=== PATIENT | female | born 1955 | race Caucasian/White ===

== ENCOUNTER → 2016-07-06 | Outpatient (CLI) | payer BC ==
--- NOTE | 2016-07-06 11:31 | REP ---
Clinical: Pain. Technique: AP, lateral, bilateral oblique and sunrise views. Findings: Mild arthritic degenerative changes include increased sclerosis to the tibial plateau with medial compartment and patellofemoral joint space narrowing, subtle cortical irregularity to the femoral condyles and calcification to the insertion of the quadriceps tendon on the patella. No acute fracture dislocation. No definite effusion. Impression: Mild arthritic degenerative changes. Signed by Rangel Hawkins MD 07/06/2016 11:22 A
== END ==
LOC: M WUC 10:42
PROVIDERS: ATTEND Nurse Practitioner Family
DX: M25.562 Pain in left knee (principal)

== ENCOUNTER 2016-08-12 02:57 | Emergency (ER) | payer BC ==
[2016-08-12] MEDS ORDERED: predniSONE 20 MG TAB As Ordered ONE (06:25)
--- NOTE | 2016-08-12 07:26 | EDDOCDS ---
Physician Documentation [facility] Name: Rosa Mcbride Age: 61 yrs Sex: Female : 1955 Arrival Date: 08/12/2016 Time: 02:57 Bed 9 Private MD: Mary Diaz DO Disposition: 08/12/16 06:38 Discharged to Home/Self Care. Impression: Allergy, unspecified. - Condition is Stable. - Discharge Instructions: Allergies, Allergies, [id number]. - Medication Reconciliation, Local Pharmacy Hours form. - Follow up: Private Physician; When: Call to arrange an appointment; Reason: Recheck today's complaints, Continuance of care. - Problem is new. - Symptoms have improved. Historical: - Allergies: Bactrim; Ciprofloxacin; - Home Meds: 1. losartan-hydrochlorothiazide 50-12.5 mg oral tab 1 tab once daily 2. eye drops - PMHx: Hypertension; - PSHx: Hysterectomy; - Social history: Smoking status: Patient states was never smoker of tobacco. Patient uses alcohol on a daily basis. No barriers to communication noted, The patient speaks fluent Maori. - Family history: Not pertinent. - : The pt / caregiver states he / she is not on anticoagulants. Home medication list is obtained from the patient. - Exposure Risk Screening:: None identified. Vital Signs: 08/12 03:13 BP 143 / 76; Pulse 71; Resp 18; Temp 98.6(O); Pulse Ox 99% on R/A; Weight 67.13 kg / tm5 148 lbs; Height 5 ft. 6 in. (167.64 cm); Pain 3/10; 07:21 BP 131 / 65; Pulse 54; Resp 16; Temp 98.1(TE); Pulse Ox 100% ; Pain 0/10; ja5 03:13 Body Mass Index 23.89 (67.13 kg, 167.64 cm) tm5 MDM: 06:15 predniSONE 60 mg PO once; administer with food or milk ordered. gk1 06:26 Financial registration complete. hs2 06:26 [facility] Payment Agreement was scanned into [employer] and attached to record. hs2 Administered Medications: 06:27 Drug: predniSONE 60 mg [prednisone 20 mg tablet (3 tabs)] Route: PO; af2 Signatures: Hillary StockRN RN af2 Sujata Perez, Reg Reg hs2 Arora, Amari, DO DO gk1 Brigida LoganRN RN tm5 Cyndi BazanRN RN ja5 The chart was reviewed and I authenticate all verbal orders and agree with the evaluation and treatment provided.Attachments: 06:26 [facility] Payment Agreement hs2 MTDD
--- NOTE | 2016-08-12 07:26 | EDDOCDS ---
Nurse's Notes [facility] Name: Rosa Mcbride Age: 61 yrs Sex: Female : 1955 Arrival Date: 08/12/2016 Time: 02:57 Bed 9 Private MD: Mary Diaz DO Diagnosis: Allergy, unspecified Presentation: 08/12 03:09 Presenting complaint: Patient states: per pt left sided of face is swollen, denies tm5 fevers, pain around left eye. Adult Sepsis Screening: The patient does not have new or worsening altered mentation. Patient's respiratory rate is less than 22. Systolic blood pressure is greater than 100. Patient has a qSOFA score of 0- Negative Sepsis Screen. Suicide/Homicide risk assessment- the patient denies having any suicidal and/or homicidal ideations and does not present with any other emotional, behavioral or mental health complaints. Status: Patient is not a creative services coordinator or dependent. Transition of care: patient was not received from another setting of care. 03:09 Acuity: DANIEL Level 3 tm5 03:09 Method Of Arrival: Walkin/Carried/Asstd tm5 Triage Assessment: 03:13 General: Appears in no apparent distress, Behavior is appropriate for age, cooperative. tm5 Pain: Location: left eye Pain currently is 3 out of 10 on a pain scale. Quality of pain is described as aching. HIV screening NA for this visit Offered previously. Neurological: Level of Consciousness is awake, alert, Oriented to person, place, time. Respiratory: Airway is patent Respiratory effort is even, unlabored, Respiratory pattern is regular, symmetrical. Derm: Skin is pink, warm & dry. 05:21 I have visited this patient for a triage reassessment, no changes in pt's assessment at tm5 this time. Historical: - Allergies: Bactrim; Ciprofloxacin; - Home Meds: 1. losartan-hydrochlorothiazide 50-12.5 mg oral tab 1 tab once daily 2. eye drops - PMHx: Hypertension; - PSHx: Hysterectomy; - Social history: Smoking status: Patient states was never smoker of tobacco. Patient uses alcohol on a daily basis. No barriers to communication noted, The patient speaks fluent Niuean. - Family history: Not pertinent. - : The pt / caregiver states he / she is not on anticoagulants. Home medication list is obtained from the patient. - Exposure Risk Screening:: None identified. Screenin:14 Screening information is obtained from the patient. Fall risk: No risks identified. tm5 Assistance ADL's: requires no assistance with activities of daily living. Abuse/DV Screen: The patient / caregiver reports he/she is: not in a situation that causes fear, pain or injury. Nutritional screening: No deficits noted. Advance Directives: Currently, there is no health care proxy. There is no active DNR order. home support is adequate. Assessment: 06:30 General: Appears in no apparent distress, Behavior is cooperative. Neurological: Level af2 of Consciousness is awake, alert. EENT: Reports swelling to face, improved after Benadryl at home.. Respiratory: Airway is patent Respiratory effort is even, unlabored. Derm: Skin is normal. 07:21 General: Appears in no apparent distress, Behavior is appropriate for age, cooperative. ja5 Pain: Denies pain. Neurological: Level of Consciousness is awake, alert, Oriented to person, place, time. EENT:. Cardiovascular: Capillary refill < 3 seconds Heart tones S1 S2 present Respiratory: Airway is patent Respiratory effort is even, unlabored, Respiratory pattern is regular, symmetrical, Breath sounds are clear bilaterally. Derm: Skin is pink, warm & dry. 07:24 General: Patient states allergy symptoms have been relieved and she plans on following ja5 up with her primary care provider.. Vital Signs: 03:13 BP 143 / 76; Pulse 71; Resp 18; Temp 98.6(O); Pulse Ox 99% on R/A; Weight 67.13 kg; tm5 Height 5 ft. 6 in. (167.64 cm); Pain 3/10; 07:21 BP 131 / 65; Pulse 54; Resp 16; Temp 98.1(TE); Pulse Ox 100% ; Pain 0/10; ja5 03:13 Body Mass Index 23.89 (67.13 kg, 167.64 cm) [facility] Vitals: 03:13 Log In Time: August 12, 2016 at 03:14. 5 ED Course: 02:59 Patient visited by Keon Alvarez RegCruz pm4 02:59 Mary Diaz is Private Physician. pm4 02:59 Patient moved to Waiting pm4 03:12 Triage Initiated tm5 03:13 Family accompanied patient. tm5 05:48 Hillary StockRN is Primary Nurse. tm5 05:48 Patient moved to 9 tm5 05:54 [facility] gk1 05:54 Jorge Ayala DO is Attending Physician. gk1 06:11 Patient visited by Jorge Ayala DO. cs11 06:26 [facility] Payment Agreement was scanned into [employer] and attached to record. hs2 06:31 The patient / caregiver is instructed regarding the plan of care and ED course. af2 06:31 No IV's were initiated during this patient's visit. No procedures done that require af2 assistance. 06:32 Patient visited by Hillary Stock RN. af2 07:06 Cyndi Bazan,RN is Primary Nurse. ja5 07:15 Adela Peraza, RN is Primary Nurse. jc4 Administered Medications: 06:27 Drug: predniSONE 60 mg [prednisone 20 mg tablet (3 tabs)] Route: PO; af2 Order Results: There are currently no results for this order. Outcome: 06:38 Discharge ordered by Provider. gk1 07:23 Discharge Assessment: Patient awake, alert and oriented x 3. No cognitive and/or ja5 functional deficits noted. Patient verbalized understanding of disposition instructions. Patient patient administered narcotics - no. The following High Risk Discharge criteria are identified: None. Discharged to home ambulatory, with family. Condition: stable. Instructed on discharge instructions, follow up and referral plans. Demonstrated understanding of. No special radiology studies were completed. Property :Personal belongings accompany Pt. 07:25 Patient left the ED. ja5 Signatures: Adela Peraza RN RN jc4 Jorge Ayala DO DO cs11 Hillary Stock RN RN af2 Sujata Perez, Reg Reg hs2 Amari Arora DO DO gk1 Brigida Logan RN RN tm5 Keon Alvarez, Reg Reg pm4 Cyndi Bazan RN RN ja5 MTDD
--- NOTE | 2016-08-14 08:26 | EDDOCDS ---
Physician Documentation [facility] [place] Name: Rosa Mcbride Age: 61 yrs Sex: Female : 1955 Arrival Date: 08/12/2016 Time: 02:57 Bed 9 Private MD: Mary Diaz DO Disposition: 08/12/16 06:38 Discharged to Home/Self Care. Impression: Allergy, unspecified. - Condition is Stable. - Discharge Instructions: Allergies, Allergies, [id number]. - Medication Reconciliation, Local Pharmacy Hours form. - Follow up: Private Physician; When: Call to arrange an appointment; Reason: Recheck today's complaints, Continuance of care. - Problem is new. - Symptoms have improved. Historical: - Allergies: Bactrim; Ciprofloxacin; - Home Meds: 1. losartan-hydrochlorothiazide 50-12.5 mg oral tab 1 tab once daily 2. eye drops - PMHx: Hypertension; - PSHx: Hysterectomy; - Social history: Smoking status: Patient states was never smoker of tobacco. Patient uses alcohol on a daily basis. No barriers to communication noted, The patient speaks fluent Arabic. - Family history: Not pertinent. - : The pt / caregiver states he / she is not on anticoagulants. Home medication list is obtained from the patient. - Exposure Risk Screening:: None identified. Vital Signs: 08/12 03:13 BP 143 / 76; Pulse 71; Resp 18; Temp 98.6(O); Pulse Ox 99% on R/A; Weight 67.13 kg / tm5 148 lbs; Height 5 ft. 6 in. (167.64 cm); Pain 3/10; 07:21 BP 131 / 65; Pulse 54; Resp 16; Temp 98.1(TE); Pulse Ox 100% ; Pain 0/10; ja5 03:13 Body Mass Index 23.89 (67.13 kg, 167.64 cm) tm5 MDM: 06:15 predniSONE 60 mg PO once; administer with food or milk ordered. gk1 06:26 Financial registration complete. hs2 06:26 [facility] Payment Agreement was scanned into [employer] and attached to record. hs2 14:32 T-Sheet-- Draft Copy was scanned into [employer] and attached to record. gb Administered Medications: 06:27 Drug: predniSONE 60 mg [prednisone 20 mg tablet (3 tabs)] Route: PO; af2 Signatures: Monica Jones, Reg Reg gb Hillary StockRN RN af2 Sujata Perez, Reg Reg hs2 Amari Arora, DO DO gk1 Brigida LoganRN RN tm5 Cyndi BazanRN RN ja5 The chart was reviewed and I authenticate all verbal orders and agree with the evaluation and treatment provided.Attachments: 06:26 [facility] Payment Agreement hs2 14:32 T-Sheet-- Draft Copy gb Chart Complete MTDD
--- NOTE | 2016-08-14 08:26 | EDDOCDS ---
Nurse's Notes [facility] Name: Rosa Mcbride Age: 61 yrs Sex: Female : 1955 Arrival Date: 08/12/2016 Time: 02:57 Bed 9 Private MD: Mary Diaz DO Diagnosis: Allergy, unspecified Presentation: 08/12 03:09 Presenting complaint: Patient states: per pt left sided of face is swollen, denies tm5 fevers, pain around left eye. Adult Sepsis Screening: The patient does not have new or worsening altered mentation. Patient's respiratory rate is less than 22. Systolic blood pressure is greater than 100. Patient has a qSOFA score of 0- Negative Sepsis Screen. Suicide/Homicide risk assessment- the patient denies having any suicidal and/or homicidal ideations and does not present with any other emotional, behavioral or mental health complaints. Status: Patient is not a customer service associate or dependent. Transition of care: patient was not received from another setting of care. 03:09 Acuity: DANIEL Level 3 tm5 03:09 Method Of Arrival: Walkin/Carried/Asstd tm5 Triage Assessment: 03:13 General: Appears in no apparent distress, Behavior is appropriate for age, cooperative. tm5 Pain: Location: left eye Pain currently is 3 out of 10 on a pain scale. Quality of pain is described as aching. HIV screening NA for this visit Offered previously. Neurological: Level of Consciousness is awake, alert, Oriented to person, place, time. Respiratory: Airway is patent Respiratory effort is even, unlabored, Respiratory pattern is regular, symmetrical. Derm: Skin is pink, warm & dry. 05:21 I have visited this patient for a triage reassessment, no changes in pt's assessment at tm5 this time. Historical: - Allergies: Bactrim; Ciprofloxacin; - Home Meds: 1. losartan-hydrochlorothiazide 50-12.5 mg oral tab 1 tab once daily 2. eye drops - PMHx: Hypertension; - PSHx: Hysterectomy; - Social history: Smoking status: Patient states was never smoker of tobacco. Patient uses alcohol on a daily basis. No barriers to communication noted, The patient speaks fluent Pakistani. - Family history: Not pertinent. - : The pt / caregiver states he / she is not on anticoagulants. Home medication list is obtained from the patient. - Exposure Risk Screening:: None identified. Screenin:14 Screening information is obtained from the patient. Fall risk: No risks identified. tm5 Assistance ADL's: requires no assistance with activities of daily living. Abuse/DV Screen: The patient / caregiver reports he/she is: not in a situation that causes fear, pain or injury. Nutritional screening: No deficits noted. Advance Directives: Currently, there is no health care proxy. There is no active DNR order. home support is adequate. Assessment: 06:30 General: Appears in no apparent distress, Behavior is cooperative. Neurological: Level af2 of Consciousness is awake, alert. EENT: Reports swelling to face, improved after Benadryl at home.. Respiratory: Airway is patent Respiratory effort is even, unlabored. Derm: Skin is normal. 07:21 General: Appears in no apparent distress, Behavior is appropriate for age, cooperative. ja5 Pain: Denies pain. Neurological: Level of Consciousness is awake, alert, Oriented to person, place, time. EENT:. Cardiovascular: Capillary refill < 3 seconds Heart tones S1 S2 present Respiratory: Airway is patent Respiratory effort is even, unlabored, Respiratory pattern is regular, symmetrical, Breath sounds are clear bilaterally. Derm: Skin is pink, warm & dry. 07:24 General: Patient states allergy symptoms have been relieved and she plans on following ja5 up with her primary care provider.. Vital Signs: 03:13 BP 143 / 76; Pulse 71; Resp 18; Temp 98.6(O); Pulse Ox 99% on R/A; Weight 67.13 kg; tm5 Height 5 ft. 6 in. (167.64 cm); Pain 3/10; 07:21 BP 131 / 65; Pulse 54; Resp 16; Temp 98.1(TE); Pulse Ox 100% ; Pain 0/10; ja5 03:13 Body Mass Index 23.89 (67.13 kg, 167.64 cm) [facility] Vitals: 03:13 Log In Time: August 12, 2016 at 03:14. 5 ED Course: 02:59 Patient visited by Keon Alvarez RegCruz pm4 02:59 Mary Diaz is Private Physician. pm4 02:59 Patient moved to Waiting pm4 03:12 Triage Initiated tm5 03:13 Family accompanied patient. tm5 05:48 Hillary StockRN is Primary Nurse. tm5 05:48 Patient moved to 9 tm5 05:54 Amari [facility] gk1 05:54 Jorge Ayala DO is Attending Physician. gk1 06:11 Patient visited by Jorge Ayala DO. cs11 06:26 [facility] Payment Agreement was scanned into [employer] and attached to record. hs2 06:31 The patient / caregiver is instructed regarding the plan of care and ED course. af2 06:31 No IV's were initiated during this patient's visit. No procedures done that require af2 assistance. 06:32 Patient visited by Hillary Stock RN. af2 07:06 Cyndi Bazan,RN is Primary Nurse. ja5 07:15 Adela Peraza, RN is Primary Nurse. jc4 14:32 T-Sheet-- Draft Copy was scanned into [employer] and attached to record. gb Administered Medications: 06:27 Drug: predniSONE 60 mg [prednisone 20 mg tablet (3 tabs)] Route: PO; af2 Order Results: There are currently no results for this order. Outcome: 06:38 Discharge ordered by Provider. gk1 07:23 Discharge Assessment: Patient awake, alert and oriented x 3. No cognitive and/or ja5 functional deficits noted. Patient verbalized understanding of disposition instructions. Patient patient administered narcotics - no. The following High Risk Discharge criteria are identified: None. Discharged to home ambulatory, with family. Condition: stable. Instructed on discharge instructions, follow up and referral plans. Demonstrated understanding of. No special radiology studies were completed. Property :Personal belongings accompany Pt. 07:25 Patient left the ED. ja5 Signatures: Monica Jones, Reg Reg gb Adela Peraza, RN RN jc4 Jorge Ayala DO DO cs11 Hillary Stock,[place] af2 Sujata Perez, Reg Reg hs2 Amari Arora DO DO gk1 Brigida LoganRN [place] tm5 Keon Alvarez, Reg Reg pm4 Cyndi Bazan,SHELTON massey5 Chart Complete MTDD
--- NOTE | 2016-08-14 08:26 | EDDOCDS ---
Physician Documentation [facility] Name: Rosa Mcbride Age: 61 yrs Sex: Female : 1955 Arrival Date: 08/12/2016 Time: 02:57 Bed 9 Private MD: Mary Diaz DO Disposition: 08/12/16 06:38 Discharged to Home/Self Care. Impression: Allergy, unspecified. - Condition is Stable. - Discharge Instructions: Allergies, Allergies, [id number]-[id number]-Hvyk. - Medication Reconciliation, Local Pharmacy Hours form. - Follow up: Private Physician; When: Call to arrange an appointment; Reason: Recheck today's complaints, Continuance of care. - Problem is new. - Symptoms have improved. Historical: - Allergies: Bactrim; Ciprofloxacin; - Home Meds: 1. losartan-hydrochlorothiazide 50-12.5 mg oral tab 1 tab once daily 2. eye drops - PMHx: Hypertension; - PSHx: Hysterectomy; - Social history: Smoking status: Patient states was never smoker of tobacco. Patient uses alcohol on a daily basis. No barriers to communication noted, The patient speaks fluent Pashto. - Family history: Not pertinent. - : The pt / caregiver states he / she is not on anticoagulants. Home medication list is obtained from the patient. - Exposure Risk Screening:: None identified. Vital Signs: 08/12 03:13 BP 143 / 76; Pulse 71; Resp 18; Temp 98.6(O); Pulse Ox 99% on R/A; Weight 67.13 kg / tm5 148 lbs; Height 5 ft. 6 in. (167.64 cm); Pain 3/10; 07:21 BP 131 / 65; Pulse 54; Resp 16; Temp 98.1(TE); Pulse Ox 100% ; Pain 0/10; ja5 03:13 Body Mass Index 23.89 (67.13 kg, 167.64 cm) tm5 MDM: 06:15 predniSONE 60 mg PO once; administer with food or milk ordered. gk1 06:26 Financial registration complete. hs2 06:26 ON LICENSE OF [facility] Payment Agreement was scanned into [employer] and attached to record. hs2 14:32 T-Sheet-- Draft Copy was scanned into [employer] and attached to record. gb Administered Medications: 06:27 Drug: predniSONE 60 mg [prednisone 20 mg tablet (3 tabs)] Route: PO; af2 Signatures: Monica Jones, Reg Reg gb Hillary StockRN RN af2 Sujata Perez, Reg Reg hs2 Amari Arora, DO DO gk1 Brigida LoganRN RN tm5 Cyndi BazanRN RN ja5 The chart was reviewed and I authenticate all verbal orders and agree with the evaluation and treatment provided.Attachments: 06:26 [facility] Payment Agreement hs2 14:32 T-Sheet-- Draft Copy gb Chart Complete MTDD
== END 2016-08-12 07:25 | disposition home or self-care (01) ==
LOC: M ED 02:57
DX: R22.0 Localized swelling, mass and lump, head (principal); I10 Essential (primary) hypertension; Z79.899 Other long term (current) drug therapy; Z88.1 Allergy status to other antibiotic agents

== ENCOUNTER → 2017-03-27 | Outpatient (REF) | payer BC | LOC: M LAB REF 16:30 | PROVIDERS: ATTEND Obstetrics & Gynecology | DX: N32.81 Overactive bladder (principal) ==

== ENCOUNTER 2017-05-24 07:22 | Day surgery (SDC) | payer BC ==
[~2017-05-24] VITALS: Ht 167.6 cm; Wt 65.7 kg
[~2017-05-24 07:22] MED LIST: FISH1000 PO; GLUC1CAP10 PO; LATA5OPD OU; MULT1TAB10 PO; MYRB25TA PO; VITA100067 PO; VITA400C7 PO; VITA500T PO; VIVE0.05 TD
[2017-05-24] MEDS ORDERED: NS 1,000 ML IV ONE (07:45)
--- NOTE | 2017-05-24 08:49 | ROOR ---
Patient Name: Rosa Mcbride Procedure Date: 05/24/2017 8:30 AM Date of : 1955 Age: 61 Room: [facility] Gender: Female Note Status: Finalized Procedure: Total Colonoscopy to Cecum Indications: Screening for colorectal malignant neoplasm Providers: Cam Cuhn MD Referring MD: Karol KATHLEEN MD Requesting Provider: Medicines: Monitored Anesthesia Care Complications: No immediate complications. Procedure: Pre-Anesthesia Assessment: - The heart rate, respiratory rate, oxygen saturations, blood pressure, adequacy of pulmonary ventilation, and response to care were monitored throughout the procedure. The Colonoscope was introduced through the anus and advanced to the cecum, identified by appendiceal orifice and ileocecal valve. The colonoscopy was performed without difficulty. The patient tolerated the procedure well. The quality of the bowel preparation was good. Findings: The perianal and digital rectal examinations were normal. Non-bleeding internal hemorrhoids were found during retroflexion. The hemorrhoids were small and Grade I (internal hemorrhoids that do not prolapse). Scattered small-mouthed diverticula were found in the recto-sigmoid colon, sigmoid colon and descending colon. The exam was otherwise without abnormality on direct and retroflexion views. The exam was otherwise without abnormality on direct and retroflexion views. Impression: - Non-bleeding internal hemorrhoids. - Diverticulosis in the recto-sigmoid colon, in the sigmoid colon and in the descending colon. - The examination was otherwise normal on direct and retroflexion views. - The examination was otherwise normal on direct and retroflexion views. - No specimens collected. - The exam was otherwise normal to the cecum. Recommendation: - Patient has a contact number available for emergencies. The signs and symptoms of potential delayed complications were discussed with the patient. Return to normal activities tomorrow. Written discharge instructions were provided to the patient. - High fiber diet. - Discharge patient to home. - Continue present medications. - Repeat colonoscopy in 10 years for screening purposes. - Return to referring physician. - The findings and recommendations were discussed with the patient's family. Cam Chun MD Cam Chun MD 05/24/2017 8:48:55 AM This report has been signed electronically. Number of Addenda: 0 Note Initiated On: 05/24/2017 8:30 AM Estimated Blood Loss: Estimated blood loss: none.
[2017-05-24 09:10] VITALS: BP 132/67
[2017-05-24] MEDS ORDERED: LIDOCAINE 2% INJ 100 MG/5 ML SDV (FOR ANES.) As Ordered ONE (09:59)
[2017-05-24] MEDS ORDERED: PROPOFOL 200 MG/20 ML VIAL As Ordered ONE ×2 (09:59→10:00)
== END 2017-05-24 09:21 | disposition home or self-care (01) ==
LOC: M OPP 07:22
PROVIDERS: ATTEND Internal Medicine Gastroenterology
DX: Z12.11 Encounter for screening for malignant neoplasm of colon (principal); K64.0 First degree hemorrhoids; K57.30 Diverticulosis of large intestine without perforation or abscess without bleeding; I10 Essential (primary) hypertension; I34.1 Nonrheumatic mitral (valve) prolapse; Z79.899 Other long term (current) drug therapy; Z88.1 Allergy status to other antibiotic agents; Z88.2 Allergy status to sulfonamides; Z78.0 Asymptomatic menopausal state; Z90.711 Acquired absence of uterus with remaining cervical stump; Z87.448 Personal history of other diseases of urinary system

== ENCOUNTER 2018-08-16 05:49 | Day surgery (SDC) | payer BC ==
--- NOTE | 2018-08-11 12:13 | CR ---
DATE OF CONSULTATION: 08/16/[address] Nunez: Thank you for asking me to see Ms. Rosa Mcbride in consultation prior to her bladder procedure. As you know, Ms. Mcbride is a 63-year-old female with past medical history of hypertension, hyperglycemia, hyperlipidemia who reports that she has been in her usual state of health except just recovering from a URI last week which was predominantly sinus congestion and she treated with Vicks. The patient reports significant stressors in her life including issues with her daughter, her son, her work, having a difficult time trying to balance her life. The patient has hypertension. She denies any chest pain, palpitations, syncope or presyncope. She does, however, have a sensation of breathlessness in the epigastric area. It improves with belching but she does note some difficulty getting a deep breath. She wonders if it could be stress. It improves when she goes out into the cold air. She has this frequently several times a day but again her stress level is very high. The patient has a history of low back pain, disc herniation, chronic stable symptoms. The patient has hyperglycemia. She denies polyuria, polydipsia. Patient is menopausal. She is on Vivelle. REVIEW OF SYSTEMS: Otherwise negative. PAST MEDICAL HISTORY: 1. Hypertensive CRI. 2. CRI III. 3. Hyperglycemia. 4. Hyperlipidemia. 5. JIM-BSO 1988. 6. Anxiety. 7. Fibrocystic breast disease. 8. 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 9. 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 10. Bladder suspension 2004. MEDICATIONS: - She is on calcium plus D daily. - Claritin 10 mg daily as needed - Epipen as needed - fish oil 1000 mg daily - glucosamine chondroitin daily - latanoprost eye drops at bedtime - multivitamin daily - Systane eye drops three times a day as needed - Tums daily - vitamin C daily - vitamin E daily - Vivelle 0.05 patch she changes it twice a week. DRUG ALLERGIES: BACTRIM which causes hives, CIPRO which causes facial swelling and could not talk, DIOVAN moderate to severe angioedema. FAMILY HISTORY: Father had diabetes and of lung cancer at 62. Mother had diabetes with neuropathy, hypertension and from a pulmonary embolism at 52. A brother has diabetes. Another brother chronic obstructive pulmonary disease (COPD). A sister diabetes and ovarian cancer. SOCIAL HISTORY: Never smoked. FAMILY HISTORY: One alcoholic beverage per day. PHYSICAL EXAMINATION: No acute distress. Vital signs are weight 146 with a blood pressure of 132/70. Her heart rate is 71. BMI 23.6, O2 sat is 95% after exertion. PHYSICAL EXAMINATION: HEENT exam: Head is normocephalic. Neck is supple. Pupils equal, reactive to light. Extraocular movements are intact. Conjunctivae not injected. Sclerae anicteric. Vision grossly normal. She does wear eyeglasses. Tympanic membranes normal. Tongue midline. Posterior pharynx without inflammation. Neck: Supple. No thyromegaly, JVD or carotid bruits. Respiratory: Clear to auscultation, resonant to percussion. Breast exam deferred. Cardiovascular: Regular rate, rhythm, barely audible systolic murmur. Abdomen: Normoactive bowel sounds, no hepatosplenomegaly. No reproducible pain. Gynecologic deferred. Extremities: No cyanosis, clubbing or edema. She has some osteoarthritic changes of the PIP joints. Neurologic: Alert and oriented. Cranial nerves II-XII are intact. LABORATORY DATA: From 06/27/2018: A1c 5.9, med profile essentially normal. Lipids significant for total cholesterol 285 with an LDL of 196. 12/18/2017 she did have a normal CBC and a TSH. The patient's EKG today 08/09/2018: Normal sinus rhythm with a rate of 71, axis of 50 degrees, normal AR, QRS, QTC interval. IMPRESSION: Ms. Rosa Mcbride is a 63-year-old female with cardiovascular risk factors positive for age, hypertension, hyperlipidemia, hyperglycemia. Family history has no signs or symptoms indicative of cardiovascular ischemia and is felt to be at low risk for cardiovascular complications which can be further minimized by the followin. Hypertension, diet controlled. Continue diet, exercise, salt restriction. 2. Hyperlipidemia. Put fish oil on hold right now, resume a week after surgery. 3. Hyperglycemia, dietary advice reinforced. 4. Dyspepsia, empirically treat with pantoprazole 40 mg daily for 2 weeks and then wean off as tolerated. Check chest x-ray to rule out other pathology. 5. Dyspnea, an epigastric sensation, update chest x-ray. Improved with cold air. Expect anxiety related. 6. Anxiety, significant stressors, support offered not interested in pharmacologic therapy. 7. Menopausal on Vivelle per Dr. Nunez. 8. Urinary incontinence. Await bladder procedure. Thank you very much for this consultation. Please call with questions or concerns.
[~2018-08-16] VITALS: Ht 167.6 cm; Wt 65.8 kg
[~2018-08-16 05:49] MED LIST changes: +CALTCHW5 PO; +REFR0.5D8 OP; +XALA0.007 OU
[2018-08-16] MEDS ORDERED: PANT40TA3 PO (06:41)
[2018-08-16] MEDS ORDERED: BUPIVACAINE HCL 0.25% 30 ML VIAL As Ordered ONE (06:51)
[2018-08-16] MEDS ORDERED: LR 1,000 ML IV SCH ×3 (07:00→09:00)
[2018-08-16] MEDS ORDERED: PROPOFOL 200 MG/20 ML VIAL As Ordered ONE (07:10)
[2018-08-16] MEDS ORDERED: dexameTHASONE 4 MG/ML 1ML VIAL (J1100) As Ordered ONE (07:10)
[2018-08-16] MEDS ORDERED: ONDANSETRON 4MG/2ML VIAL (J2405) As Ordered ONE (07:10)
[2018-08-16] MEDS ORDERED: LIDOCAINE 2% INJ 100 MG/5 ML SDV (FOR ANES.) As Ordered ONE (07:10)
[2018-08-16] MEDS ORDERED: MIDAZOLAM INJ 2 MG/2 ML VIAL (J2250) As Ordered ONE (07:10)
[2018-08-16] MEDS ORDERED: fentaNYL 100 MCG/2 ML INJECTION (J3010) As Ordered ONE (07:11)
[2018-08-16] MEDS ORDERED: ceFAZolin 2 GM/D5W 50 ML IV BAG (J0690 PER 500MG) As Ordered ONE (07:19)
[2018-08-16] MEDS ORDERED: ePHEDrine SULFATE 25 MG/5 ML(5MG/ML) SYRINGE As Ordered ONE (08:12)
[2018-08-16] MEDS ORDERED: ONDANSETRON 4MG/2ML VIAL (J2405) IV PRN (08:45)
[2018-08-16] MEDS ORDERED: METOCLOPRAMIDE INJ 10MG/2ML VIAL (J2765) IV PRN (08:45)
[2018-08-16] MEDS ORDERED: PERCOCET 5MG/325MG TAB PO PRN (08:45)
[2018-08-16] MEDS ORDERED: MEPERIDINE INJ 25 MG/ML VIAL (J2175) IV PRN (08:45)
[2018-08-16] MEDS ORDERED: fentaNYL 100 MCG/2 ML INJECTION (J3010) IV PRN (08:45)
[2018-08-16] MEDS ORDERED: IBUPROFEN 600 MG TAB PO PRN (09:00)
[2018-08-16 10:30] VITALS: BP 140/61
--- NOTE | 2018-08-16 18:05 | RO ---
DATE OF PROCEDURE: 08/16/2018 PREOPERATIVE DIAGNOSIS: Incontinence with intrinsic sphincteric deficiency (ISD). POSTOPERATIVE DIAGNOSIS: Incontinence with intrinsic sphincteric deficiency (ISD). PROCEDURE: Cystourethroscopy with Macroplastique periurethral injection, two full ampules of Macroplastique were used. SURGEON: Dr. Mila Nunez ASTRONOMY DEPARTMENT CHAIR: ANESTHESIA: LMA. DESCRIPTION OF PROCEDURE: Rosa was brought to the operating room where sufficient LMA anesthesia was induced, and she was prepped, draped and positioned in the usual sterile fashion and then periurethral injection for Marcaine for local anesthetic and analgesia was given on both the left and ride side. Then, placed the cystoscope, then visualized the bladder, which was normal in appearance. There were normal jets of urine. There was normal trigone, and there was no visible abnormalities of the bladder in a 360-degree survey of the internal bladder. We then placed the Macroplastique needle through the scope, cleared the air from the line and then backed the scope into the urethra. We were able to see a posterior sort of broad laxity of the urethra, and we injected first at 8 o'clock and that spread primarily posteriorly quite well but did not fill that space. We put a full ampule in, waited 30 seconds, removed the scope. We then reloaded the next ampule. We did have to go past our injection site in order to bring the needle through. It came out behind the scope, so we had to remove the scope and sort of re-guide the needle and then replace the scope again and get our needle into position and then we injected another full ampule at 5 o'clock on the urethra. Pictures were taken to document this. We had good coaptation, still just (dictation cut off) and see where the space was still, but we still had good coaptation, and I did not want to over correct the problem and have a risk of retention, so we stopped there and of course, waited the 30 seconds before removing the needle and then emptied the bladder with the smaller in and out catheter and ended the procedure. Estimated blood loss for the procedure was maybe 2 mL. Fluid replacement was crystalloid. Complications: None. Condition and Disposition: Rosa tolerated the procedure well and was recovering in the recovery room in good condition.
== END 2018-08-16 10:40 | disposition home or self-care (01) ==
LOC: M SDC 05:49
PROVIDERS: ATTEND Obstetrics & Gynecology
DX: N39.3 Stress incontinence (female) (male) (principal); N36.42 Intrinsic sphincter deficiency (ISD); I10 Essential (primary) hypertension; E78.5 Hyperlipidemia, unspecified; R73.03 Prediabetes; Z79.899 Other long term (current) drug therapy; Z88.2 Allergy status to sulfonamides
CPT/HCPCS: 52327; J0690; J1100; J2250; J2405; J3010; L8606

== ENCOUNTER 2019-01-17 06:10 | Emergency (ER) | payer BC ==
[~2019-01-17] VITALS: Ht 167.6 cm; Wt 67.3 kg
[~2019-01-17 06:10] MED LIST changes: +LATA0.0013 OU; -LATA5OPD OU; +PANT40TA3 PO
[2019-01-17] MEDS ORDERED: ALBU8.5H (06:22)
[2019-01-17] MEDS ORDERED: methylPREDNISolone INJ 125 MG/2 ML VIAL (J2930) IV ONE (06:45)
[2019-01-17] MEDS ORDERED: FAMOTIDINE IV BAG 20 MG in APPROPRIATE DILUENT 1 EA IV ONE (06:45)
[2019-01-17] MEDS ORDERED: diphenhydrAMINE INJ 50MG/ML VIAL (J1200) IV ONE (06:45)
[2019-01-17] MEDS ORDERED: MEDR4PAK PO (11:22)
[2019-01-17 11:31] VITALS: BP 144/69
[2019-01-23 00:06] LABS: TRYPTASE 3.6 ug/L (2.2-13.2)
== END 2019-01-17 11:44 | disposition home or self-care (01) ==
LOC: M ED 06:10
DX: R22.0 Localized swelling, mass and lump, head (principal); T78.3XXA Angioneurotic edema, initial encounter; X58.XXXA Exposure to other specified factors, initial encounter; Y92.89 Other specified places as the place of occurrence of the external cause; I10 Essential (primary) hypertension; Z88.2 Allergy status to sulfonamides; Z88.1 Allergy status to other antibiotic agents; Z79.899 Other long term (current) drug therapy; Z79.890 Hormone replacement therapy
CPT/HCPCS: 83519; 85280; 86160; 86161; 96365; 96366; 96375; 99285; J1200; J2930

== ENCOUNTER → 2019-04-04 | Outpatient (CLI) | payer BC ==
[~2019-04-04] MED LIST changes: +ALBU8.5H; +MEDR4PAK PO
[2019-04-04 13:12] LABS: BASO % 0.5 % (0.0-1.0); EOS # 0.2 10^3/uL (0.0-0.5); EOS % 3.4 % (0.0-3.0); HEMATOCRIT 43.4 % (36.0-47.0); HEMOGLOBIN 14.2 g/dl (12.0-15.5); LYMPH # 1.9 10^3/uL (1.5-5.0); LYMPH % 31.6 % (24.0-44.0); MEAN CORPUSCULAR HEMOGLOBIN 31.6 pg (27.0-33.0); MEAN CORPUSCULAR HGB CONC 32.7 g/dl (32.0-36.5); MEAN CORPUSCULAR VOLUME 96.4 fl (80.0-96.0); MONO # 0.6 10^3/uL (0.0-0.8); MONO % 9.8 % (0.0-5.0); NEUTROPHILS # 3.3 10^3/uL (1.5-8.5); NEUTROPHILS % 54.5 % (36.0-66.0); PLATELET COUNT, AUTOMATED 246 10^3/uL (150-450); WHITE BLOOD COUNT 6.1 10^3/uL (4.0-10.0)
[2019-04-04 13:24] LABS: FREE T4 0.87 NG/DL (0.76-1.46); RHEUMATOID FACTOR QUANT < 10.0 IU/ML (<15.0)
[2019-04-04 13:26] LABS: TOTAL T3 111.5 NG/DL (60.0-181.0)
[2019-04-05 06:14] LABS: THYROID PEROXIDASE ANTIBODY 40.8 U/ML (<60.0)
[2019-04-05 06:15] LABS: THYROGLOBULIN ANTIBODY < 15.0 U/ML (<60.0)
== END ==
LOC: M SMT 10:44
PROVIDERS: ATTEND Allergy & Immunology Allergy
DX: T78.3XXA Angioneurotic edema, initial encounter (principal)

== ENCOUNTER → 2020-04-11 | Outpatient (CLI) | payer BC ==
[~2020-04-11] MED LIST changes: +PANT40TA29 PO; -PANT40TA3 PO; +VITA-243 PO; -VITA500T PO
[2020-04-11 17:36] LABS: BASO % 0.3 % (0.0-1.0); EOS # 0.1 10^3/uL (0.0-0.5); EOS % 1.1 % (0.0-3.0); HEMATOCRIT 41.9 % (36.0-47.0); HEMOGLOBIN 13.4 g/dl (12.0-15.5); LYMPH # 1.8 10^3/uL (1.5-5.0); LYMPH % 17.9 % (24.0-44.0); MEAN CORPUSCULAR HEMOGLOBIN 30.8 pg (27.0-33.0); MEAN CORPUSCULAR VOLUME 96.3 fl (80.0-96.0); MONO # 0.7 10^3/uL (0.0-0.8); MONO % 6.4 % (0.0-5.0); NEUTROPHILS # 7.6 10^3/uL (1.5-8.5); NEUTROPHILS % 73.9 % (36.0-66.0); PLATELET COUNT, AUTOMATED 238 10^3/uL (150-450); RED BLOOD COUNT 4.35 10^6/uL (4.00-5.40); WHITE BLOOD COUNT 10.3 10^3/uL (4.0-10.0)
[2020-04-11 17:51] LABS: ALBUMIN 3.5 GM/DL (3.2-5.2); BILIRUBIN,TOTAL 0.6 MG/DL (0.2-1.0); CALCIUM LEVEL 8.4 MG/DL (8.8-10.2); GLOMERULAR FILTRATION RATE 59.6 (>45); POTASSIUM SERUM 4.5 MEQ/L (3.5-5.1); TOTAL PROTEIN 6.9 GM/DL (6.4-8.2)
[2020-04-14 16:08] LABS: Lyme Disease IgG/IgM Antibodie <0.91 ISR (0.00-0.90); Lyme Disease IgM Ab Quantitati <0.80 index (0.00-0.79)
== END ==
LOC: M WUC 14:53
PROVIDERS: ATTEND Nurse Practitioner Family
DX: R21 Rash and other nonspecific skin eruption (principal)

== ENCOUNTER → 2020-04-20 | Outpatient (REF) | payer BC, OTHER ==
[2020-04-22 20:08] LABS: Lyme Disease IgG Ab 18 kDa Ban Absent (.); Lyme Disease IgG Ab 23 kDa Ban Absent (.); Lyme Disease IgG Ab 28 kDa Ban Absent (.); Lyme Disease IgG Ab 30 kDa Ban Absent (.); Lyme Disease IgG Ab 39 kDa Ban Absent (.); Lyme Disease IgG Ab 41 kDa Ban Absent (.); Lyme Disease IgG Ab 45 kDa Ban Absent (.); Lyme Disease IgG Ab 58 kDa Ban Absent (.); Lyme Disease IgG Ab 66 kDa Ban Absent (.); Lyme Disease IgG Ab 93 kDa Ban Absent (.); Lyme Disease IgG West Blot Int Negative (.); Lyme Disease IgG/IgM Antibodie <0.91 ISR (0.00-0.90); Lyme Disease IgM Ab 23 kDa Ban Absent (.); Lyme Disease IgM Ab 39 kDa Ban Absent (.); Lyme Disease IgM Ab 41 kDa Ban Absent (.); Lyme Disease IgM Ab Quantitati 1.05 index (0.00-0.79); Lyme Disease IgM West Blot Int Negative (.)
== END ==
LOC: M LAB REF 16:41
PROVIDERS: ATTEND Internal Medicine
DX: L30.9 Dermatitis, unspecified (principal)

== ENCOUNTER → 2021-05-04 | Outpatient (REF) | payer BC ==
[2021-05-04 13:29] LABS: APPEARANCE, URINE CLEAR (CLEAR); BACTERIA, URINE AUTO NEGATIVE (NEGATIVE); BILIRUBIN, URINE AUTO NEGATIVE (NEGATIVE); BLOOD, URINE BLOOD NEGATIVE (NEGATIVE); COLOR, URINE YELLOW (YELLOW); GLUCOSE, URINE (UA) AUTO NEGATIVE (NEGATIVE); KETONE, URINE AUTO NEGATIVE (NEGATIVE); LEUKOCYTE ESTERASE, URINE AUTO NEGATIVE (NEGATIVE); NITRITE, URINE AUTO NEGATIVE (NEGATIVE); PROTEIN, URINE AUTO NEGATIVE (NEGATIVE); RBC, URINE AUTO 1 /HPF (0-3); SQUAMOUS EPITHELIAL CELL UR AU 0 /HPF (0-6); UROBILINOGEN, URINE AUTO 0.2 mg/dL (0.0-2.0); WBC, URINE AUTO 0 /HPF (0-3)
== END ==
LOC: M LAB REF 12:49
PROVIDERS: ATTEND Obstetrics & Gynecology
DX: R32 Unspecified urinary incontinence (principal)

== ENCOUNTER → 2021-06-12 | Outpatient (CLI) | payer BC ==
[~2021-06-12] MED LIST changes: -ALBU8.5H; +ALBU8.5H INH; +CARV3.12 PO; +LORA-243 PO; +OLOP0.1D OU; +ROSU5TAB5 PO; +TUMS500C PO; +VITMTA PO; +[UNRECOGNIZED DRUG - CODE] XX
== END ==
LOC: M LABSMTC 09:56
PROVIDERS: ATTEND Anesthesiology
DX: Z01.812 Encounter for preprocedural laboratory examination (principal); Z11.52 Encounter for screening for COVID-19

== ENCOUNTER 2021-06-17 10:44 | Day surgery (SDC) | payer BC ==
[~2021-06-17] VITALS: Ht 167.6 cm; Wt 69.9 kg
[~2021-06-17 10:44] MED LIST changes: +ACETAMINOPHEN 1000MG 100ML IV BTL (OFIRMEV) (J0131 PER 10MG) As Ordered ONE; +KETOROLAC 60MG 2ML VIAL As Ordered ONE; +LIDOCAINE 2% 100MG/5ML SDV (FOR ANES.) As Ordered ONE; +LR 1,000 ML IV ONE; +MIDAZOLAM INJ 2MG/2ML VIAL (J2250 PER 1MG) As Ordered ONE; +ONDANSETRON 4MG/2ML VIAL As Ordered ONE; +SUGAMMADEX SODIUM 500 MG/5 ML VIAL (BRIDION) As Ordered ONE; +ceFAZolin SOD 2 GM in IV 1 EA IV ONE; +dexameTHASONE 4 MG/ML 1ML VIAL (J1100 PER 1MG) As Ordered ONE; +fentaNYL 100 MCG/2 ML INJECTION (J3010) As Ordered ONE; +propofoL 200 MG/20 ML VIAL As Ordered ONE
[2021-06-17] MEDS ORDERED: ePHEDrine SULFATE 25 MG/5 ML(5MG/ML) SYRINGE As Ordered ONE (13:14)
[2021-06-17] MEDS ORDERED: ONDANSETRON 4MG/2ML VIAL IV PRN (13:55)
[2021-06-17] MEDS ORDERED: oxyCODONE 5MG TAB PO PRN (13:55)
[2021-06-17] MEDS ORDERED: LR 1,000 ML IV SCH ×2 (13:55→14:00)
[2021-06-17] MEDS ORDERED: fentaNYL 100 MCG/2 ML INJECTION (J3010) IV PRN (13:55)
[2021-06-17] MEDS ORDERED: IBUPROFEN 600MG TAB PO PRN (14:00)
[2021-06-17 15:15] VITALS: BP 140/68
--- NOTE | 2021-06-18 08:29 | RO ---
OPERATIVE NOTE DATE OF OPERATION: 06/17/2021 PREOPERATIVE DIAGNOSIS/INDICATIONS FOR SURGERY: Stress urinary incontinence with ISD. POSTOPERATIVE DIAGNOSIS: Stress urinary incontinence with ISD. PROCEDURE: Cystourethroscopy with Macroplastique per urethral injection. SURGEON: Mila Nunez MD INSULATION WORKER INTERIOR SURFACE: None. ANESTHESIA: LMA. SPECIMENS: None. DESCRIPTION OF PROCEDURE/FINDINGS: Rosa was brought to the operating room where sufficient LMA anesthesia was induced. She was prepped, draped and positioned in the usual sterile fashion with preoperative antibiotics given. She was then positioned with the bladder scoped. Normal ureteral jets noticed. No bladder lesions noted and some laxity at the bladder neck as expected with her ISD as diagnosed preoperatively. We then injected 2 ampules of Macroplastique injecting at 4, 6 and 8 o'clock and waiting 30 seconds before removal of the needle at each site. There was no breakthrough, there did seem to be good coaptation of the urethral jean-baptiste and good result. The procedure was then ended. ESTIMATED BLOOD LOSS FOR THE PROCEDURE: Zero. FLUID REPLACEMENT: Crystalloid. COMPLICATIONS: None. CONDITION AND DISPOSITION: Rosa tolerated the procedure well and was recovering in the recovery room in good condition.
== END 2021-06-17 15:20 | disposition home or self-care (01) ==
LOC: M SDC 10:44
PROVIDERS: ATTEND Obstetrics & Gynecology
DX: N39.3 Stress incontinence (female) (male) (principal); N36.42 Intrinsic sphincter deficiency (ISD); I12.9 Hypertensive chronic kidney disease with stage 1 through stage 4 chronic kidney disease, or unspecified chronic kidney disease; E78.00 Pure hypercholesterolemia, unspecified; I34.1 Nonrheumatic mitral (valve) prolapse; R01.1 Cardiac murmur, unspecified; M19.90 Unspecified osteoarthritis, unspecified site; N18.30 Chronic kidney disease, stage 3 unspecified; Z80.3 Family history of malignant neoplasm of breast; Z90.12 Acquired absence of left breast and nipple; Z92.3 Personal history of irradiation; Z88.1 Allergy status to other antibiotic agents; Z88.2 Allergy status to sulfonamides; Z91.048 Other nonmedicinal substance allergy status; Z79.899 Other long term (current) drug therapy
CPT/HCPCS: 51715; J0131; J0690; J1100; J2250; J2405; J3010; L8606

== ENCOUNTER → 2021-12-30 | Outpatient (REF) | payer MEDICARE, BC, OTHER ==
[~2021-12-30] MED LIST changes: -ACETAMINOPHEN 1000MG 100ML IV BTL (OFIRMEV) (J0131 PER 10MG) As Ordered ONE; -KETOROLAC 60MG 2ML VIAL As Ordered ONE; -LIDOCAINE 2% 100MG/5ML SDV (FOR ANES.) As Ordered ONE; -LR 1,000 ML IV ONE; -MIDAZOLAM INJ 2MG/2ML VIAL (J2250 PER 1MG) As Ordered ONE; -OLOP0.1D OU; +OLOP5DRO16 OU; -ONDANSETRON 4MG/2ML VIAL As Ordered ONE; -SUGAMMADEX SODIUM 500 MG/5 ML VIAL (BRIDION) As Ordered ONE; -ceFAZolin SOD 2 GM in IV 1 EA IV ONE; -dexameTHASONE 4 MG/ML 1ML VIAL (J1100 PER 1MG) As Ordered ONE; -fentaNYL 100 MCG/2 ML INJECTION (J3010) As Ordered ONE; -propofoL 200 MG/20 ML VIAL As Ordered ONE
== END ==
LOC: M LAB REF 12:19
PROVIDERS: ATTEND Registered Nurse
DX: N39.0 Urinary tract infection, site not specified (principal)

== ENCOUNTER → 2022-03-25 | Outpatient (REF) | payer MEDICARE, OTHER, BC ==
[2022-03-25 14:27] LABS: BACTERIA, URINE LARGE AMOUNT
[2022-03-25 14:28] LABS: HYALINE CAST, URINE NONE SEEN /lpf (0-1); MUCUS, URINE SMALL AMOUNT (NEGATIVE); SQUAMOUS EPITHELIAL CELL URINE SMALL AMOUNT /hpf (SMALL AMT)
== END ==
LOC: M SMT 13:09
PROVIDERS: ATTEND Specialist
DX: N95.2 Postmenopausal atrophic vaginitis (principal); Z79.899 Other long term (current) drug therapy

== ENCOUNTER → 2022-05-26 | Outpatient (REF) | payer MEDICARE, BC, OTHER | LOC: M LAB REF 16:20 | PROVIDERS: ATTEND Internal Medicine | DX: M06.4 Inflammatory polyarthropathy (principal) ==

== ENCOUNTER → 2022-05-27 | Outpatient (CLI) | payer MEDICARE, BC, OTHER | LOC: M WUC 13:53 | PROVIDERS: ATTEND Internal Medicine | DX: R06.02 Shortness of breath (principal); M79.641 Pain in right hand; M79.642 Pain in left hand ==

== ENCOUNTER → 2022-07-01 | Outpatient (CLI) | payer MEDICARE, BC ==
[~2022-07-01] MED LIST changes: +E-Z-GAS II EFFERVESCENT PACKET (SODIUM BICARB./CITRIC ACID/SIMETHICONE) As Ordered ONE; +E-Z-HD 98% w/w 340GM SUSP BTL As Ordered ONE; +E-Z-PAQUE 96% w/w SUSP 176GM BTL As Ordered ONE
== END ==
LOC: M RAD 09:12
PROVIDERS: ATTEND Internal Medicine
DX: R06.00 Dyspnea, unspecified (principal); K30 Functional dyspepsia

== ENCOUNTER → 2022-08-10 | Outpatient (CLI) | payer MEDICARE, BC ==
[~2022-08-10] MED LIST changes: -E-Z-GAS II EFFERVESCENT PACKET (SODIUM BICARB./CITRIC ACID/SIMETHICONE) As Ordered ONE; -E-Z-HD 98% w/w 340GM SUSP BTL As Ordered ONE; -E-Z-PAQUE 96% w/w SUSP 176GM BTL As Ordered ONE
== END ==
LOC: M LAB 17:27
PROVIDERS: ATTEND Specialist
DX: N39.0 Urinary tract infection, site not specified (principal)

== ENCOUNTER → 2022-09-27 | Outpatient (REF) | payer MEDICARE, BC ==
[~2022-09-27] MED LIST changes: -OLOP5DRO16 OU; +OLOP5DRO17 OU
== END ==
LOC: M LAB REF 16:34
PROVIDERS: ATTEND Physician Assistant Medical
DX: R30.0 Dysuria (principal)

== ENCOUNTER → 2022-12-05 | Outpatient (REF) | payer MEDICARE, BC | LOC: M LAB REF 12:08 | PROVIDERS: ATTEND Internal Medicine | DX: I51.9 Heart disease, unspecified (principal) ==

== ENCOUNTER 2023-02-22 12:39 | Day surgery (SDC) | payer MEDICARE, BC ==
[~2023-02-22] VITALS: Ht 167.6 cm; Wt 62.8 kg
[~2023-02-22 12:39] MED LIST changes: +AMLO2.5T3 PO; +BROM500T2 PO; +CLAR10CA3 PO; +CVS-161 PO; +ESTR10TA PO; +GALZ50CA PO; +IMVE4SUP; +NS 1,000 ML IV ONE; +OMEGCAP9 PO; +THERTAB52 PO; +VITA100093 PO; +VITA400T26 PO; +XALA0.007
[2023-02-22] MEDS ORDERED: fentaNYL 100 MCG/2 ML INJECTION As Ordered ONE (13:27)
[2023-02-22] MEDS ORDERED: LIDOCAINE 2% 100MG/5ML SDV (FOR ANES.) As Ordered ONE (13:28)
[2023-02-22] MEDS ORDERED: propofoL 200 MG/20 ML VIAL As Ordered ONE (13:28)
[2023-02-22 14:13] VITALS: TEMP 96.8
[2023-02-22 14:31] VITALS: BP 175/79; O2SAT 98
== END 2023-02-22 14:31 | disposition home or self-care (01) ==
LOC: M OPP 12:39
PROVIDERS: ATTEND Internal Medicine Gastroenterology
DX: K31.7 Polyp of stomach and duodenum (principal); R63.4 Abnormal weight loss; R93.3 Abnormal findings on diagnostic imaging of other parts of digestive tract; Z79.1 Long term (current) use of non-steroidal anti-inflammatories (NSAID); Z79.51 Long term (current) use of inhaled steroids; Z79.52 Long term (current) use of systemic steroids; Z79.899 Other long term (current) drug therapy; Z88.1 Allergy status to other antibiotic agents; Z88.2 Allergy status to sulfonamides; Z88.8 Allergy status to other drugs, medicaments and biological substances
CPT/HCPCS: 43239; 88305; J3010

== ENCOUNTER → 2023-06-13 | Outpatient (REF) | payer MEDICARE, BC ==
[~2023-06-13] MED LIST changes: -NS 1,000 ML IV ONE
== END ==
LOC: M LAB REF 16:16
PROVIDERS: ATTEND Internal Medicine
DX: R30.0 Dysuria (principal)

== ENCOUNTER → 2023-10-16 | Outpatient (REF) | payer MEDICARE, BC | LOC: M LAB REF 12:39 | PROVIDERS: ATTEND Internal Medicine | DX: M06.4 Inflammatory polyarthropathy (principal) ==

== ENCOUNTER → 2023-12-01 | Outpatient (REF) | payer MEDICARE ==
[~2023-12-01] MED LIST changes: +ROSU5TAB40 PO; -ROSU5TAB5 PO
== END ==
LOC: M LAB REF 16:21
PROVIDERS: ATTEND Internal Medicine
DX: R30.0 Dysuria (principal)

== ENCOUNTER → 2023-12-14 | Outpatient (REF) | payer MEDICARE | LOC: M LAB REF 16:10 | PROVIDERS: ATTEND Internal Medicine | DX: N39.0 Urinary tract infection, site not specified (principal) ==

== ENCOUNTER → 2024-05-31 | Outpatient (REF) | payer MEDICARE ==
[~2024-05-31] MED LIST changes: -ROSU5TAB40 PO; +ROSU5TAB49 PO
== END ==
LOC: M LAB REF 16:35
PROVIDERS: ATTEND Internal Medicine
DX: N39.0 Urinary tract infection, site not specified (principal)

== ENCOUNTER → 2024-06-11 | Outpatient (REF) | payer MEDICARE | LOC: M LAB REF 12:12 | PROVIDERS: ATTEND Internal Medicine | DX: R32 Unspecified urinary incontinence (principal); R30.0 Dysuria; R35.0 Frequency of micturition; M19.90 Unspecified osteoarthritis, unspecified site; M06.4 Inflammatory polyarthropathy ==

== ENCOUNTER → 2024-08-16 | Outpatient (CLI) | payer MEDICARE ==
[2024-08-16 16:27] LABS: BACTERIA, URINE AUTO 3+ (NEGATIVE); MUCUS, URINE SMALL (NEGATIVE); RBC, URINE AUTO 2 /HPF (0-3); SQUAMOUS EPITHELIAL CELL UR AU 0 /HPF (0-6); TRANSITIONAL EPITHELIAL AUTO <1 /HPF; WBC, URINE AUTO 57 /HPF (0-3)
== END ==
LOC: M LAB 15:54
PROVIDERS: ATTEND Physician Assistant
DX: R30.0 Dysuria (principal)

== ENCOUNTER → 2025-01-01 | Outpatient (REF) | payer MEDICARE ==
[~2025-01-01] MED LIST changes: +ESTR4INS; -GALZ50CA PO; -IMVE4SUP; +ZINC50CA4 PO
== END ==
LOC: M LAB REF 12:12
PROVIDERS: ATTEND Internal Medicine
DX: R42 Dizziness and giddiness (principal); I51.9 Heart disease, unspecified; R74.8 Abnormal levels of other serum enzymes; R06.02 Shortness of breath

== ENCOUNTER → 2025-01-06 | Outpatient (REF) | payer MEDICARE | LOC: M LAB REF 14:02 | PROVIDERS: ATTEND Internal Medicine | DX: M06.4 Inflammatory polyarthropathy (principal); J06.9 Acute upper respiratory infection, unspecified; R53.83 Other fatigue ==

== ENCOUNTER → 2025-05-27 | Outpatient (REF) | payer MEDICARE | LOC: M LAB REF 13:55 | PROVIDERS: ATTEND Internal Medicine | DX: M06.4 Inflammatory polyarthropathy (principal) ==

== ENCOUNTER → 2025-06-09 | Outpatient (CLI) | payer MEDICARE | LOC: M WUC 12:49 | PROVIDERS: ATTEND Physician Assistant Medical | DX: M25.562 Pain in left knee (principal) ==